=== PATIENT | female | born 1990 | race African-American/Black ===

== ENCOUNTER 2017-06-11 14:19 | Emergency (ER) | payer MEDICAID ==
[~2017-06-11] VITALS: Ht 182.9 cm; Wt 80.6 kg
[2017-06-11 15:22] LABS: CLARITY URINE CLEAR (CLEAR); COLOR URINE YELLOW (YELLOW); KETONES URINE NEGATIVE (NEGATIVE); LEUKOCYTE ESTERASE URINE 1+ (NEGATIVE); NITRITE URINE NEGATIVE (NEGATIVE); OCCULT BLOOD URINE 2+ (NEGATIVE); PROTEIN URINE NEGATIVE (NEGATIVE); SPECIFIC GRAVITY URINE 1.014 (1.005-1.030); UROBILINOGEN URINE 0.2 E.U./dL (0.2-1.0)
[2017-06-11] MEDS ORDERED: PENICILLIN G BENZATHINE 1,200,000 UNITS/2ML SYR IM ONE (16:30)
[2017-06-11 17:43] VITALS: BP 123/73
== END 2017-06-11 17:45 | disposition home or self-care (01) ==
LOC: ER 15:00
DX: J02.0 Streptococcal pharyngitis (principal); F17.200 Nicotine dependence, unspecified, uncomplicated
CPT/HCPCS: 81003; 81025; 87070; 87430; 96372; 99284; J0561

== ENCOUNTER 2017-06-13 15:53 | Emergency (ER) | payer MEDICAID ==
[~2017-06-13] VITALS: Ht 182.9 cm; Wt 81.0 kg
[2017-06-13] MEDS ORDERED: IBUPROFEN 600MG TABLET PO ONE (21:30)
[2017-06-13] MEDS ORDERED: PREDNISONE 20MG TABLET PO ONE (21:30)
[2017-06-13 21:52] VITALS: BP 120/69
[2017-06-13 23:06] LABS: MONOTEST NEGATIVE (NEGATIVE)
== END 2017-06-14 00:06 | disposition home or self-care (01) ==
LOC: ER 17:52
DX: J02.9 Acute pharyngitis, unspecified (principal); N39.0 Urinary tract infection, site not specified
CPT/HCPCS: 86308; 87070; 99284; J7512